=== PATIENT | male | born 1970 | race Caucasian/White ===

== ENCOUNTER 2016-11-25 20:58 | Inpatient (IN) | payer MEDICAID, MEDICARE ==
[~2016-11-25] VITALS: Ht 181.6 cm; Wt 109.7 kg
[2016-11-25 21:09] VITALS: BP 178/89; PULSE 104; RESP 18; O2SAT 98
[2016-11-25 22:00] LABS: BASOPHILS % (AUTO) 0.2 % (0-3); EOSINOPHILS % (AUTO) 1.7 % (0-5); MONOCYTES % (AUTO) 11.3 % (4-12); Mean Corpuscular Hemoglobin 27.2 pg (27.0-35.0); Mean Corpuscular Volume 83.1 fL (81-100); NEUTROPHILS % (AUTO) 73.2 % (40-74); Platelet Count 249 bil/L (150-400)
--- NOTE | 2016-11-25 22:36 | ED.REPORT ---
HPI-Extremity Problem Upper Date of Service November 25, 2016 ED Provider: Talat Lee MD 46 year old male with a history of diabetes, left BKA, and partial right foot amputation presents to the ER complaining of left hand pain secondary to an infection of the left finger. He is currently on courses of tetracycline and Bactrim to treat the infection. Associated symptoms include mild chills, and hot flashes. Patient denies productive cough, and any other symptoms at this time. Nursing Notes Stated Complaint: BAD INFECTION IN FINGER Chief Complaint: General Complaint Nursing Notes Reviewed: Yes Allergies: Coded Allergies: No Known Allergies (Unverified , 11/25/16) General Time Seen by MD: 22:33 Chief Complaint Hand Injury left, Finger injury left 3 Hx Obtained From: Patient Arrived By: Walk-in Onset Occurred: Onset unknown Location: : Finger left 3: Hand left Quality: Painful Severity: Current: Moderate Severity: Maximum: Moderate Additional Notes: Chills and hot flashes Pertinent Negative: Pt denies other symptoms Similar Sx Previous: Yes Past Medical History Past Medical History Reports: Diabetes mellitus Past Surgical History Partial amputation of right foot Left BKA Smoking History Unknown if Ever Smoker Ambulatory Status Independent Review of Systems Constitutional: Reports: Chills, Denies: Fever Musculoskeletal: Reports: Extremity pain (Left Hand), Denies: Back pain, Lumbar pain, Neck pain Complete sys rev & neg: except as marked. Respiratory: Denies: Non-productive cough, Prod cough, brown, Prod cough, clear , Prod cough, green, Prod cough, white, Prod cough, yellow GI: Denies: Nausea, Vomiting Physical Exam Initial Vital Signs Vital Signs (First) Date Time Temp Pulse Resp B/P Pulse Ox O2 Delivery O2 Flow Rate FiO2 11/25/16 21:09 38.6 104 18 178/89 98 Room Air Initial VS: Reviewed Head / Eyes: Atraumatic, Normocephalic Neck: Supple, Non-tender, Full range of motion Lower Extremities: Vascular intact, Neuro intact, No swelling, No tenderness Skin: Warm, Dry, No cyanosis Neurologic: Alert, Oriented, Nonfocal General/Constitutional: Awake, Alert, Well developed, Well hydrated, Well nourished, Cooperative Cheerful. Flushed. Respiratory / Chest: Breath sounds NL, Breath sounds = bilat, No respiratory distress, No rales, No rhonchi, No wheezing Cardiovascular: Heart rate NL, Regular rhythm, Heart sounds NL, Peripheral circulation NL Wrist / Hand: Full range of motion, Neurologic intact, Vascular intact Left distal third phalanx is white, full of pus, obviously infected. Old stab wound on the palmar side of the distal third finger. Interpretation & Diagnostics Lab Results Interpretation Result Diagram: 11/26/16 0445 11/26/16 0445 Test 11/25/16 21:47 Erythrocyte Sedimentation Rate 18mm/hr (0-15) Prothrombin Time 10.2sec (8.1-12.5) Prothromb Time International Ratio 0.95ratio Activated Partial Thromboplast Time 25.3sec (22.8-33.0) Phosphorus Level 2.4mg/dL (2.5-4.9) Magnesium Level 1.7mg/dL (1.6-2.6) Total Bilirubin 0.4mg/dL (0.0-1.2) Aspartate Amino Transf (AST/SGOT) 14U/L (0-50) Alanine Aminotransferase (ALT/SGPT) 15U/L (0-44) Alkaline Phosphatase 119U/L (25-150) Troponin T 0.010ug/L (0.0-0.011) Pro-B-Type Natriuretic Peptide 86.70pg/mL (0-121) Total Protein 8.3g/dL (6.4-8.4) Albumin 3.4g/dL (3.4-5.0) Hold Sigala Top Tube Received (Received) X-Ray Chest Interpretation Chest Xray Interpretation: Atelectatic streak at the left base. View: Portable, 1 view Interpretation / Wet Read by: Wet read ED physician X-Ray Interpretation Xray Interpretation: Bony fragment from prior amputation of the tuft of the middle finger. No obvious osteomyelitis. X-Ray Ordered: Hand left Interpretation / Wet Read by: Wet read ED physician Re-Eval/Medical Decision Med Decision/Clinical Course 38-year-old diabetic with prior amputations presents with worsening infection in his finger despite antibiotics. The entire tip of the finger is full of pus at this point, with proximal erythema and edema. X-ray does not show osteomyelitis, but there is previously been surgical removal of the tuft. He has begun with sepsis protocol soft tissue drugs including meropenem clindamycin and vancomycin. Admitted to the medicine service in stable condition. Trivial elevation of lactic acid and no evidence of generalized acidosis. He does have central fever and chills despite being on antibiotics. Consultation to orthopedics this morning. Source of Hx: Old records Re-Evaluation/Progress : Time of Eval: 22:39 Re-Evaluation/Progress Note: Discussed lab results and need for admission. Patient is amenable to the plan. All other questions addressed. Consultation #1: Referral / Consult Name: Carlos Eduardo Fan MD Consulted With: Hospitalist Call Returned at: 22:53 Evs Manager: Agrees with eval, Agrees with plan, Accepts admit Consultation #2: Referral / Consult Name: Talat Saenz MD Consulted With: Orthopedic Call Returned at: 22:53 Note: Left voicemail. Counseled Regarding: Diagnosis, Lab results, Need for admission Discharge & Departure Impression: Primary Impression: Abscess of finger of left hand Additional Impressions: Cellulitis and abscess Diabetes Peripheral vascular disease due to secondary diabetes Disposition: ADMITTED TO HOSPITAL Discharge Condition All VS Reviewed: Yes Condition: Stable Referrals: [facility] ([facility]) Rodolfo Attestation Portions of this note were transcribed by Yonathan Mckay. I, Dr. Lee, personally performed the history, physical exam and medical decision-making; I reviewed and confirmed the accuracy of the information in the transcribed note. Signed by: Rodolfo Simon, 11/26/2016 at 01:31 copies to: [facility] Christopher W MD November 25, 2016 22:36 YONATHAN MCKAY November 25, 2016 22:44 Pro-B-Type Natriuretic Peptide 86.70pg/mL (0-121) Total Protein 8.3g/dL (6.4-8.4) Albumin 3.4g/dL (3.4-5.0) Procalcitonin 0.11ng/mL (0.00-0.08) Hold Sigala Top Tube Received (Received) X-Ray Chest Interpretation Chest Xray Interpretation: Atelectatic streak at the left base. View: Portable, 1 view Interpretation / Wet Read by: Wet read ED physician X-Ray Interpretation Xray Interpretation: Bony fragment from prior amputation of the tuft of the middle finger. No obvious osteomyelitis. X-Ray Ordered: Hand left Interpretation / Wet Read by: Wet read ED physician Re-Eval/Medical Decision Source of Hx: Old records Re-Evaluation/Progress : Time of Eval: 22:39 Re-Evaluation/Progress Note: Discussed lab results and need for admission. Patient is amenable to the plan. All other questions addressed. Consultation #1: Referral / Consult Name: Carlos Eduardo Fan MD Consulted With: Hospitalist Call Returned at: 22:53 Evs Manager: Agrees with eval, Agrees with plan, Accepts admit Consultation #2: Referral / Consult Name: Talat Saenz MD Consulted With: Orthopedic Call Returned at: 22:53 Note: Left voicemail. Counseled Regarding: Diagnosis, Lab results, Need for admission Discharge & Departure Impression: Primary Impression: Osteomyelitis Additional Impression: Abscess of finger of left hand Disposition: ADMITTED TO HOSPITAL Discharge Condition All VS Reviewed: Yes Condition: Stable Referrals: [facility] (PC[facility]) Rodolfo Attestation Portions of this note were transcribed by Yonathan Mckay. I, Dr. Lee, personally performed the history, physical exam and medical decision-making; I reviewed and confirmed the accuracy of the information in the transcribed note. Signed by: Rodolfo Simon, 11/26/2016 at 01:31 copies to: [facility] Talat Lee MD November 25, 2016 22:36 YONATHAN MCKAY November 25, 2016 22:44
[2016-11-25] MEDS ORDERED: Clindamycin Inj 900 MG in IV Premix 1 EACH IV ONE (22:40)
[2016-11-25] MEDS ORDERED: Meropenem Inj 1,000 MG in 0.9% Sodium Chloride 100 ML IV ONE (22:40)
[2016-11-25] MEDS ORDERED: 0.9% Sodium Chloride 1,000 ML IV ONE (22:40)
[2016-11-25] MEDS ORDERED: Vancomycin Dose per Pharmacist XX ONE (22:40)
[2016-11-25 22:47] VITALS: BP 151/73; PULSE 98; RESP 19; O2SAT 97
[2016-11-25] MEDS ORDERED: Vancomycin Inj 2,250 MG in 0.9% Sodium Chloride 500 ML IV ONE (23:00)
[2016-11-25 23:12] LABS: INR 0.95 ratio
[2016-11-25 23:26] LABS: TROPONIN T 0.01 ug/L (0.0-0.011)
--- NOTE | 2016-11-25 23:34 | PCM.HPMED ---
Subjective Date of Service November 25, 2016 Primary Provider: Admitting Physician: Primary Care Physician: Halie Mukherjee Attending Physician: Chief Complaint: left finger infection History of Present Illness: 46-year-old male with history of insulin-dependent diabetes, left BKA, right partial foot amputations, and multiple digit amputations who presents to the ED complaining of infection of his left third digit. Patient noted the symptoms around Thursday, he was evaluated at [facility] ER and was placed on tetracycline and Bactrim. He is currently here in [facility] and noted that the infection has been spreading up his dorsum and forearm. He has noted some mild chills, and occasional hot flashes, but denies any SOB, CP, nausea, headache, dizziness, rash, or diarrhea. He notes a mild non-productive cough for the past month. reports that patient is a habitual nail biter, and due to his severe neuropathy, he has no pain from this. Patient reports that he is currently on 100 units of basal insulin twice a day and 50 units of Humalog before meals. He states that his morning sugars range between 75 and 200, and his afternoon sugars are regularly in the 200s and 300s, despite his high insulin dosage. He has had multiple cellulitis, osteomyelitis, and septic episodes in the past. Review of Systems: 12 point review of systems negative except as stated in the history of present illness Allergies Coded Allergies: No Known Allergies (Unverified , 11/25/16) Home Medications From [facility] records Gabapentin 1200 mg daily at bedtime Wellbutrin 150 mg daily at bedtime Citalopram 80 mg daily at bedtime Patient reports Levemir 100 units twice a day, Humalog 50 units before meals PMH Insulin-dependent diabetes type II Diabetic neuropathy Obesity Sleep apnea on CPAP Depression and anxiety Recurrent osteomyelitis Surgical History Left BKA Right partial foot amputation Right second and third digit amputation Left second digit amputation Appendectomy Family History Extensive family history of diabetes Social History Hx Alcohol Use: No Hx Substance Use: No Hx Tobacco Use: No Living Arrangement: Alone Exam Vital Signs Vital Sign - Last Date Time Temp Pulse Resp B/P Pulse Ox O2 Delivery O2 Flow Rate FiO2 11/25/16 22:47 37.8 98 19 151/73 97 Room Air Exam General: Obese male who appears in no acute distress, alert and oriented x 3 HEENT: PERRLA, EOMI, sclerae anicteric, oropharynx pink Neck: Soft, nontender, trachea midline CV: RRR, no M/R/C noted Respiratory: CTA B, no wheezing or rhonchi, normal respiratory effort Abdomen: Obese, soft, nontender, nondistended, NABS MSK: MS grossly intact in leftover extremities, Dysmorphic nails on every digit Extremities: Left BKA with prosthetic leg, right midfoot amputation, right 2nd and third digit amputated, left 2nd digit amputated. Left 3rd distal phalanx white in color with central ulceration draining yellow pus, whole digit is edematous and erythematous. Erythema extends from digit up dorsum to mid forearm. Forearm is tender to palpation. No fluctuance noted. No other tender or swollen joints. Neuro: No focal weakness, stockings and glove paresthesia bilaterally, face symmetric, speaks full and fluent sentences Skin: Erythema of left dorsum and forearm. Erythema in a cowl distribution on neck and chest, no other rashes noted Psychiatric: Appropriate mood and affect, linear thought process, cooperative Lab and Diagnostics Result Diagram: 11/25/16214611/25/162146 Assessment & Plan 46-year-old male with history of insulin-dependent diabetes, left BKA, right partial foot amputations, and multiple digit amputations who presents to the ED complaining of infection of his left third digit x 5 days Sepsis, present on admission Patient meets criteria with temperature 38.6, tachycardia, elevated white count , and finger as source of infection Initiate early goal-directed therapy Initial lactic acid was 1.2, CRP was 15.7, ESR was 18, and Procalcitonin of 0.11 IV vancomycin, IV clindamycin, IV meropenem initiated in the ED on November 25 Blood cultures and abscess culture were drawn, results pending MRSA screen pending IV NS at 150mls/hr Cellulitis with abscess, POA LRINEC score of 5, low risk of NSTIs. Should cover for pseudomonas in this diabetic patient. Tailor antibiotics as appropriate Awaiting imaging to evaluate for osteomyelitis. We will continue with IV vancomycin, IV clindamycin, and switch to IV Zosyn until ID consultation Recommend Infectious Disease consultation in the AM. Hand/Plastic surgeon to be consulted in the AM. Type II diabetes, POA Awaiting MED REC to verify patient's home regimen. Will place on High dose correctional scale and 50 units of Lantus BID until MED rec is performed. May need U-300 insulin brought up from pharmacy A1c pending SYLVIA, POA Place on CPAP Mood disorders, POA Will continue patient's home medication when MED REC performed Tylenol prn fever Zofran prn nausea Bowel regimen prn constipation CODE STATUS: Full resuscitation Disposition: Patient is admitted under inpatient status with expected length of stay greater than 2 midnights due to risk of adverse events, decompensation, and medical complexity Pain Evaluation: Adequate Pain Control VTE Prophylaxis: Sub-Q Heparin (Unfractionated), SCDs Resuscitation Status: CPR: Attempt Resuscitation Attending Statement The patient was seen and examined together with Dr. Uribe on 11/25 and I agree with the history, exam and plan as outlined in the note above. Luis E Uribe DO November 25, 2016 23:34 Carlos Eduardo Fan MD November 26, 2016 02:37
[2016-11-25 23:36] LABS: Magnesium 1.7 mg/dL (1.6-2.6); Phosphorus 2.4 mg/dL (2.5-4.9)
[2016-11-25] MEDS ORDERED: 0.9% Sodium Chloride 1,000 ML IV SCH (23:59)
[2016-11-25] MEDS: 0.9% Sodium Chloride 1,000 ML IV SCH (23:59)
[2016-11-26] MEDS ORDERED: Ondansetron 2 mg/mL 2 mL Inj IVPUSH PRN
[2016-11-26] MEDS ORDERED: Polyethylene Glycol (PEG) 17 Gm Powder PO PRN
[2016-11-26] MEDS ORDERED: Alum-Mag Hydrox-Simeth 30 mL Suspension PO PRN
[2016-11-26] MEDS ORDERED: Glucose 40% Oral Gel 15 Gm Tube PO PRN (00:10)
[2016-11-26] MEDS: Heparin 5,000 Unit/mL Inj SUBQ SCH ×3 (00:30→16:10)
[2016-11-26] MEDS: Sodium Chloride LOK Flush 10 mL Syringe IVFLUSH SCH ×3 (00:30→16:11)
[2016-11-26] MEDS: Piperacillin-Tazo 3.375 Gm Inj 3.375 GM in Dextrose 5% Minibag Plus 50 ML IV SCH ×3 (00:30→17:25)
--- NOTE | 2016-11-26 01:06 | PCM.CONPHA ---
Subjective Date of Service: November 26, 2016 left finger infection Reason for Pharmacy Consult: Vancomycin Dosing Objective Vital Signs Date Time Temp Pulse Resp B/P Pulse Ox O2 Delivery O2 Flow Rate FiO2 11/25/16 22:47 37.8 98 19 151/73 97 Room Air 11/25/16 21:09 38.6 104 18 178/89 98 Room Air Weight (Kilograms): 113.6 Height (Feet): 5 Height (Inches): 10 Test 11/25/16 21:47 White Blood Count 11.2th/mm3 (3.8-10.1) Red Blood Count 5.03mil/mm3 (4.40-5.80) Hemoglobin 13.7g/dL (13.8-17.2) Hematocrit 41.8% (41.0-50.0) Mean Corpuscular Volume 83.1fL (81-100) Mean Corpuscular Hemoglobin 27.2pg (27.0-35.0) Mean Corpuscular Hemoglobin Concent 32.8% (32.0-37.0) Red Cell Distribution Width 13.3% (12.3-15.4) Platelet Count 249bil/L (150-400) Neutrophils (%) (Auto) 73.2% (40-74) Lymphocytes (%) (Auto) 13.4% (14-46) Monocytes (%) (Auto) 11.3% (4-12) Eosinophils (%) (Auto) 1.7% (0-5) Basophils (%) (Auto) 0.2% (0-3) Erythrocyte Sedimentation Rate 18mm/hr (0-15) Prothrombin Time 10.2sec (8.1-12.5) Prothromb Time International Ratio 0.95ratio Activated Partial Thromboplast Time 25.3sec (22.8-33.0) Sodium Level 135mEq/L (134-144) Potassium Level 4.7mEq/L (3.5-5.2) Chloride Level 98mEq/L (97-108) Carbon Dioxide Level 24mmol/L (18-29) Blood Urea Nitrogen 16mg/dL (6-24) Creatinine 0.80mg/dL (0.76-1.27) Estimat Glomerular Filtration Rate 110mL/min (>59) Glucose Level 308mg/dL (60-99) Lactic Acid Level 1.2mmol/L (0.4-2.0) Calcium Level 10.1mg/dL (8.5-10.1) Phosphorus Level 2.4mg/dL (2.5-4.9) Magnesium Level 1.7mg/dL (1.6-2.6) Total Bilirubin 0.4mg/dL (0.0-1.2) Aspartate Amino Transf (AST/SGOT) 14U/L (0-50) Alanine Aminotransferase (ALT/SGPT) 15U/L (0-44) Alkaline Phosphatase 119U/L (25-150) Troponin T 0.010ug/L (0.0-0.011) C-Reactive Protein 15.7mg/dL (0.0-0.5) Pro-B-Type Natriuretic Peptide 86.70pg/mL (0-121) Total Protein 8.3g/dL (6.4-8.4) Albumin 3.4g/dL (3.4-5.0) Procalcitonin 0.11ng/mL (0.00-0.08) Hold Sigala Top Tube Received (Received) Assessment/Plan Assessment/Plan Vancomycin management per pharmacy Indication: sepsis, cellulitis with abscess Vancomycin trough goal: 15-20 Nephrotic risks: diabetes Other antibiotics: clindacyin, Zosyn Loading dose: vancomycin 2250 mg @0047 Cultures: pending Maintenance dose: vancomcyin 1250 mg Q8H has been scheduled to start at 0830. Trough has been scheduled for 11/26 at 2359 prior to 4th dose. Pharmacy to continue to monitor and dose vancomycin daily. Thank you, Norm Vasquez Pharmacist Norm Vasquez November 26, 2016 01:06
[2016-11-26 03:47] VITALS: BP 117/52; PULSE 90; RESP 20; O2SAT 97
[2016-11-26 04:53] LABS: BASOPHILS % (AUTO) 0.1 % (0-3); MONOCYTES % (AUTO) 13.2 % (4-12); Mean Corpuscular Hemoglobin 27.6 pg (27.0-35.0); Mean Corpuscular Volume 83.5 fL (81-100); NEUTROPHILS % (AUTO) 60.9 % (40-74); Platelet Count 230 bil/L (150-400)
[2016-11-26] MEDS ORDERED: Insulin GLARgine 100 Unit/mL Syringe SUBQ SCH ×2 (08:00→22:00)
--- NOTE | 2016-11-26 08:13 | DRSVH ---
PROCEDURE: X-RAY LEFT HAND, MINIMUM THREE VIEWS ([id number]) INDICATIONS: pre op, MIDDLE FINGER INFECTION TECHNIQUE: 3 views of the hand(s) acquired. COMPARISON: None. FINDINGS: Bones: Chronic amputation of the distal aspect of the left second proximal phalanx and of the distal left third pharyngeal tuft. No erosions to suggest osteomyelitis at these sites. No fractures or disl ocations. Normal left hand alignment.. Soft tissues: No suspicious soft tissue calcifications. IMPRESSION: Amputations in the distal left third and proximal left second phalanges. Otherwise normal left hand radiographs. Dictated by: Maynor Hernandez M.D. on 11/26/2016 at 8:05 Approved by: Maynor Hernandez M.D. on 11/26/2016 at 8:06
--- NOTE | 2016-11-26 08:14 | DRSVH ---
PROCEDURE: X-RAY CHEST ONE VIEW, PORTABLE ([id number]) INDICATIONS: pre op TECHNIQUE: One view of the chest was acquired. COMPARISON: None. FINDINGS: Surgical changes and devices: None. Lungs and pleura: No pleural effusions or pneumothorax. Lungs are clear. Mediastinum: Mediastinal contours appear normal. Heart size is normal. Bones and chest wall: No suspicious bony lesions. Overlying soft tissues appear unremarkable. IMPRESSION: Negative chest. Dictated by: Maynor Hernandez M.D. on 11/26/2016 at 8:06 Approved by: Maynor Hernandez M.D. on 11/26/2016 at 8:07
[2016-11-26 08:23] VITALS: BP 122/61; PULSE 90; RESP 20; O2SAT 94
[2016-11-26] MEDS: 0.9% Sodium Chloride 1,000 ML IV SCH ×3 (08:27→23:40)
[2016-11-26] MEDS: Clindamycin Inj 600 MG in IV Premix 1 EACH IV SCH ×4 (08:28→23:41)
[2016-11-26] MEDS: Vancomycin Dose per Pharmacist XX SCH (08:29)
[2016-11-26] MEDS: Insulin LISPRO 300 Unit/3 mL Inj SUBQ SCH ×4 (09:09→21:51)
[2016-11-26] MEDS: Vancomycin Inj 1,250 MG in 0.9% Sodium Chloride 250 ML IV SCH ×2 (09:09→17:25)
[2016-11-26 11:48] VITALS: BP 120/63; PULSE 88; RESP 17; O2SAT 96
[2016-11-26 12:16] LABS: APPEARANCE,URINE CLEAR (CLEAR,HAZY); COLOR,URINE STRAW (YELLOW); OCCULT BLOOD,URINE NEGATIVE (NEGATIVE); UROBILINOGEN,URINE NORMAL (NORMAL)
[2016-11-26] MEDS ORDERED: SENN-133 PO (13:43)
[2016-11-26] MEDS ORDERED: CITA40TA13 PO (13:43)
[2016-11-26] MEDS ORDERED: GABA600T2 PO (13:43)
[2016-11-26] MEDS ORDERED: LOVA40TA PO (13:43)
[2016-11-26] MEDS ORDERED: INSU100I25 SQ (13:43)
[2016-11-26] MEDS ORDERED: BUPR150T8 PO (13:43)
[2016-11-26] MEDS ORDERED: ASPI-973 PO (13:43)
[2016-11-26] MEDS ORDERED: INSU100I18 SUBQ (13:43)
--- NOTE | 2016-11-26 14:00 | CONS ---
[address] [address] CONSULTATION REPORT PATIENT: VENTURA MARIN : 1970 MR#: [id number] ADMIT: 11/26/2016 JOB ID: [id number] DATE OF SERVICE: 11/26/2016 CONSULTING PHYSICIAN: Hospitalist service. BOWL TOPPER: Dayron Griffiths M.D., Plastic Surgery, Hand Surgery. CHIEF COMPLAINT: Left middle finger infection. DATE OF SERVICE: HISTORY OF PRESENT ILLNESS: This is a 46-year-old male patient with history significant for diabetes with peripheral vasculopathy. The patient has had left BKA as well as partial foot amputation. The patient also has had several finger amputations. The patient reports that he noticed some paleness of the left middle finger approximately one month ago. The patient reports that it progressed. The patient reports that he noted the erythema and swelling 4-5 days ago. The patient was evaluated at an outside emergency department and was placed on tetracycline and Bactrim. The patient is currently visiting a friend. The patient reports that his symptoms worsened and presents for further evaluation. The patient has been admitted for antibiotics. The patient is currently on vancomycin and Zosyn as well as clindamycin. The patient reports that he would like to have amputation of the tip. The patient has had such a procedure in the past with a guillotine with the patient followed by delayed closure. The patient's x-rays done yesterday were reviewed. They noted that the distal tip of the distal phalanx is non-existent. PAST MEDICAL HISTORY: 1. Diabetes. 2. Peripheral vascular disease. 3. Sleep apnea. 4. Neuropathy. 5. Recurrent osteomyelitis. PAST SURGICAL HISTORY: 1. Left BKA. 2. Left foot amputation. 3. Right index and middle finger amputation. 4. Left index finger amputation. 5. Appendectomy. FAMILY HISTORY: Noncontributory. SOCIAL HISTORY: Negative. REVIEW OF SYSTEMS: As above, otherwise review of systems is negative. PHYSICAL EXAMINATION: The patient is awake, alert and oriented to time, place and person. This focused left index examination reveals amputation of the left index finger at the PIP joint. The incision continues to have a small scab at the central portion of it. The patient's left little finger has the erythema to the proximal aspect of the middle phalanx. There is moderate swelling. The distal phalanx is pale. There is a skin split on the volar aspect of the distal phalanx as well as on the dorsal aspect of the distal phalanx, and to manipulation produces a small amount of purulence. Examination is otherwise negative. ASSESSMENT AND PLAN: This is a patient with left middle finger infection. I spoke with the patient and he has never had any amputation of the middle finger tip. The finger tip likely has been infected and has chronic osteomyelitis and has essentially been in the way. At this point, I agree with the patient. I recommend a guillotine amputation of the middle finger at the DIP joint leaving as much viable tissue as possible. The patient will perform dressing changes to this area daily until the area calms down. Once this has been accomplished, I will perform a delayed closure. I discussed this with the patient who agreed with the plan. PLAN: Please make the patient n.p.o. past midnight tonight, November 26, 2016. I anticipate taking the patient to the operating room on November 27, 2016 for guillotine amputation of the left middle finger. JANICE
[2016-11-26] MEDS ORDERED: BUPR100T7 PO (14:31)
[2016-11-26] MEDS ORDERED: LIP40 PO (14:31)
[2016-11-26] MEDS ORDERED: LOSA25TA21 PO (14:31)
--- NOTE | 2016-11-26 15:02 | PCM.PNMED ---
Subjective Date of Service November 26, 2016 Subjective Patient was seen and examined at bedside today. Patient denies any chest pain, shortness of breath, nausea, vomiting, diarrhea. Patient denies any pain in the affected digit. Overnight events: None Exam Vital Signs Vital Sign - Last Date Time Temp Pulse Resp B/P Pulse Ox O2 Delivery O2 Flow Rate FiO2 11/26/16 11:48 36.4 88 17 120/63 96 Nasal Cannula 3.00 Intake and Output 11/25/16 11/25/16 11/26/16 Cumulative From/Thru 15:00 23:00 07:00 11/25/16 21:09 - 11/26/16 00:45 Intake Total 1000 ml 1000 ml Balance 1000 ml 1000 ml Intake IV Total 1000 ml 1000 ml Exam Physical Exam: GEN: Patient was awake, alert, responding appropriately to questions HEENT: Pupils equal round and reactive to light, extraocular eye muscles intact , Neck soft supple, trachea midline, nomocephalic/atraumatic CV: +S1/S2, regular rate and rhythm, no murmurs auscultated Respiratory: CTAB, no wheezes, rales, rhonchi GI: +bowel sounds x4, soft, compressible, nontender to palpation EXT: no clubbing, cyanosis, edema noted in the lower extremities, patient has a left BKA, right metatarsal amputation, multiple digit amputations in the hand, left third digit positive edema nonblanching skin and positive necrosis Neuro: Cranial nerves II-XII grossly intact Psych: mood and affect were appropriate IVs and Medications Medications Reviewed: Medications were reviewed in detail Lab and Diagnostics Result Diagram: 11/26/16 0445 11/26/16 0445 Assessment & Plan 46-year-old male with history of insulin-dependent diabetes, left BKA, right partial foot amputations, and multiple digit amputations who presents to the ED complaining of infection of his left third digit x 5 days Sepsis, present on admission Patient meets criteria with temperature 38.6, tachycardia, elevated white count , and finger as source of infection -Initiate early goal-directed therapy -Initial lactic acid was 1.2, CRP was 15.7, ESR was 18, and Procalcitonin of 0.11 -IV vancomycin, IV clindamycin, IV meropenem initiated in the ED on November 25 -Blood cultures and abscess culture were drawn, results pending -MRSA screen Negative -Discontinue IV fluids restart at midnight IV NS at 150mls/hr Cellulitis with abscess, POA Should cover for pseudomonas as this is diabetic patient. -Dr. Griffiths consulted (orthopedics) case was discussed with him and he feels that this is osteomyelitis -Continue IV antibiotics IV vancomycin, IV clindamycin, and switch to IV Zosyn until ID consultation - Consult infectious disease (Dr. Woodard) -Nothing by mouth at midnight -Surgical amputation in the morning -Continue home dose of gabapentin 1200 mg by mouth daily at bedtime Type II diabetes, POA -Hemoglobin A1c pending -Continue high-dose correctional insulin sliding scale -Continue home dose Levemir, equivalent 100 units subcutaneous twice a day -Continue home dose Levemir equivalent 50 units subcutaneous 3 times a day before meals -Continue to monitor and medically manage Hyperlipidemia (currently stable) -Continue atorvastatin 40 mg by mouth daily at bedtime Hypertension -Continue losartan 25 mg by mouth daily at bedtime SYLVIA, POA Place on CPAP Mood disorders, POA -Continue citalopram 40 mg by mouth daily at bedtime -Continue home dose of Wellbutrin 200 mg by mouth daily at bedtime Tylenol prn fever Zofran prn nausea Bowel regimen prn constipation CODE STATUS: Full resuscitation Disposition: The patient currently has osteomyelitis and this was discussed extensively with Dr. Griffiths. He feels that the patient definitely needs an amputation this was scheduled for tomorrow. He states that if the patient does well he may be able to be discharged home tomorrow. They will not close the wound tomorrow but the patient will follow-up with him in 2 weeks for closure and in the meantime do dressing changes. The patient has been through this multiple times and understands and is okay with this plan. VTE Prophylaxis: Sub-Q Heparin (Unfractionated), SCDs Resuscitation Status: CPR: Attempt Resuscitation Shirley Alberts DO November 26, 2016 15:02
[2016-11-26 16:13] VITALS: BP 107/55; PULSE 86; RESP 17; O2SAT 98
[2016-11-26] MEDS ORDERED: INSULIN LISPRO 50 UNIT SUBQ SCH (17:00)
[2016-11-26] MEDS ORDERED: INSULIN DETEMIR 100 UNIT SQ SCH (20:30)
[2016-11-26] MEDS ORDERED: buPROPion SR 100 mg ER12 Tablet PO SCH (21:00)
[2016-11-26 21:15] VITALS: BP 112/58; PULSE 98; RESP 18; O2SAT 94
[2016-11-26] MEDS: Insulin GLARgine 100 Unit/mL Syringe SUBQ SCH (21:52)
[2016-11-26] MEDS ORDERED: Vancomycin Serum Trough XX ONE (23:59)
[2016-11-27] VITALS (8 sets, daily range): BP systolic 105–144; BP diastolic 54–74; PULSE 87–92; RESP 16–18; O2SAT 93–97
[2016-11-27] MEDS: Heparin 5,000 Unit/mL Inj SUBQ SCH ×3 (00:25→16:41)
[2016-11-27] MEDS: Vancomycin Inj 1,250 MG in 0.9% Sodium Chloride 250 ML IV SCH (00:26)
[2016-11-27] MEDS: Sodium Chloride LOK Flush 10 mL Syringe IVFLUSH SCH ×3 (00:30→16:41)
--- NOTE | 2016-11-27 02:20 | PCM.PHAPRO ---
Progress Date of Service: November 27, 2016 left finger infection Vancomycin management per pharmacy Indication: sepsis, cellulitis with abscess Vancomycin trough goal: 15-20 Nephrotic risks: diabetes Other antibiotics: clindacyin, Zosyn Loading dose: vancomycin 2250 mg @0047 Previous maintenance dose: vancomycin 1250 mg Q8H. Trough this evenin.4 Trough is subtherapeutic.Will aim for trough around 15 and anticipate trough to creep up due to accumulation. Increase maintenance dose: vancomcyin 1500 mg Q8H has been scheduled to start at 0830. Trough has been scheduled for 11/28 at 0800. Pharmacy to continue to monitor and dose vancomycin daily. Thank you, Norm Vasquez Pharmacist Norm Vasquez November 27, 2016 02:20
[2016-11-27] MEDS: Piperacillin-Tazo 3.375 Gm Inj 3.375 GM in Dextrose 5% Minibag Plus 50 ML IV SCH (03:31)
[2016-11-27] MEDS: 0.9% Sodium Chloride 1,000 ML IV SCH (05:52)
--- NOTE | 2016-11-27 06:36 | PCM.HPANE ---
Patient Data Surgeon Admitting Provider:Carlos Eduardo Fan MD Attending Provider:Carlos Eduardo Fan MD Primary Care Physician:[facility] Other Provider:Sundeep Raines Anesthesia Reason for Visit Infected And Distal Phalang 3RD Finger L Hand Ht/WT & BMI Height (Feet): 5 Height (Inches): 11.50 Weight (Kilograms): 109.700 Body Mass Index 33.12 Allergies Coded Allergies: No Known Allergies (Unverified , 11/25/16) Past Anesthesia History Anesthesia History: Denies:: Anesthesia Reactions Diabetes History Hx Diabetes?: Yes Current Bedside Blood Glucose: 180 MRSA MRSA: No Medications Hypertension Medication: Yes Home Meds Incl Beta Tamica: No Reported Medications Losartan Potassium 25 Mg [id number] Mg PO HS 11/26/16 Atorvastatin (Lipitor)40 Mg Ajbvbn04 Mg PO HS 11/26/16 Bupropion ER (Wellbutrin SR)100 Mg Tablet.er200 Mg PO HS 11/26/16 Sennosides (Senna)8.6 Mg Tablet8.6 Mg PO HS 11/26/16 Aspirin 81 Mg Dawfdc61 Mg PO HS 11/26/16 Citalopram 40 Mg Mgsrnk50 Mg PO HS 11/26/16 Gabapentin 600 Mg Tablet1,200 Mg PO HS 11/26/16 Insulin Detemir (Levemir Flextouch)100 Unit/1 Ml Insuln.ayz967 Unit SQ BID 11/26/16 Insulin Lispro (HumaLOG U100 Insulin Pen)100 Unit/1 Ml Insuln.pen50 Unit SUBQ TIDAC Blood Sugar Lispro Correction <151 0 units 151-175 1 unit 176-200 2 units 201-225 3 units 226-250 4 units 251-275 5 units 276-300 6 units 301-325 7 units 326-350 8 units 351-375 9 units 376-400 10 units >400 12 units Check blood sugars before meals and at bedtime. Use correction factor only before meals. 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 Denies:: Blood Transfusions Hx Diabetes: YesBedside Blood Glucose: 180 Hx Alcohol Use: NoHx Substance Use: No Smoking Status: Unknown if Ever Smoker Stop/Bang Treated for Sleep Apnea?: Yes Do You Have a CPAP Machine?: Yes S-Snoring: Do You Snore Loudly: Yes T-Tired: feel tired, fatigued: Yes O-Obsered: Observed not breath: Yes P-Blood Pressure: treated: Yes B- Body Mass Index > 35 kg/m2: Yes A- Age over 50: No N- Neck Large Circumference: No G- Gender Male: Yes SYLVIA Total Score: 7 SYLVIA Risk Assessment: High Risk, =/>3 Yes Risk Assessment Category Category 1A: Patient has history of documented sleep apnea, and HAS NOT received any narcotic, sedative or anesthesia administration during this stay. Category 1B: Patient has history of documented sleep apnea, and HAS received any narcotic , sedative or anesthesia administration during this stay Category 2: Patient has SUSPECTED Obstructive Sleep Apnea, and HAS received any narcotic , sedative or anesthesia administration during this stay. Category 3: Patient has SUSPECTED Obstructive Sleep Apnea and HAS NOT received narcotic, sedative or anesthesia administration during this stay. Category 4: Outpatient in Procedural Areas with known sleep apnea or who screen positive for High Risk via the STOP/BANG questionnaire. Exam Exam General Appearance: Alert, Oriented X3, Cooperative, No Acute Distress HEENT/AIRWAY: MP 2 Lungs: Normal Air Movement Heart: Exam Unremarkable Meds/Labs/Diagnostics Admission Meds Current Medications Clindamycin Phosphate/ Dextrose/Premix (Cleocin Inj/IV Premix) 50 ml @ 100 mls/ hr Q8 IV Last administered on 5/10/17at 23:41; Start 11/26/16 at 08:00 Insulin Glargine (Lantus Insulin Inj) 50 unit BID@08,22 SUBQ Last administered on 11/26/16 09:09; Start 11/26/16 at 08:00; Stop 11/26/16 at 15:31; Status DC Insulin Human Lispro Nutritional Dose to be given pr... [facility] SUBQ Last administered on 11/26/16 21:51; Start 11/26/16 at 08:00 Vancomycin HCl 1250 mg/Sodium Chloride 250 ml @ 166.667 mls/hr Q8 IV Last administered on 11/27/16 00:26; Start 11/26/16 at 08:30; Stop 11/27/16 at 02:16 ; Status DC Sodium Chloride (Normal Saline) 1,000 ml @ 150 mls/hr Q6H40M IV Last administered on 11/27/16 05:52; Start 11/27/16 at 00:00 Aspirin (Ecotrin) 81 mg HS PO Last administered on 11/26/16 21:17; Start 11/26 at 21:00 Atorvastatin Calcium (Lipitor) 40 mg HS PO Last administered on 11/26/16 21:17 ; Start 11/26/16 at 21:00 Bupropion HCl (Wellbutrin-SR) 200 mg HS PO Last administered on 11/26/16 21:17 ; Start 11/26/16 at 21:00 Losartan Potassium (Cozaar) 25 mg HS PO Last administered on 11/26/16 21:17; Start 11/26/16 at 21:00 Senna (Senokot) 8.6 mg HS PO Last administered on 11/26/16 21:17; Start at 21:00 Citalopram Hydrobromide (CeleXA) 40 mg HS PO Last administered on 11/26/16 21: 17; Start 11/26/16 at 21:00 Gabapentin (Neurontin) 1,200 mg HS PO Last administered on 11/26/16 19:44; Start 11/26/16 at 21:00 Insulin Glargine (Lantus Insulin Inj) 100 unit ,22 SUBQ Last administered on 11/26/16 21:52; Start 11/26/16 at 22:00 Bedside Blood Glucose: 180 Labs Test 11/25/16 21:47 11/26/16 04:45 11/26/16 11:20 11/27/16 00:00 Erythrocyte Sedimentation Rate 18mm/hr (0-15) Prothrombin Time 10.2sec (8.1-12.5) Prothromb Time International Ratio 0.95ratio Activated Partial Thromboplast Time 25.3sec (22.8-33.0) Hemoglobin A1c 9.6% (4.8-5.6) Phosphorus Level 2.4mg/dL (2.5-4.9) Magnesium Level 1.7mg/dL (1.6-2.6) Total Bilirubin 0.4mg/dL (0.0-1.2) Aspartate Amino Transf (AST/SGOT) 14U/L (0-50) Alanine Aminotransferase (ALT/SGPT) 15U/L (0-44) Alkaline Phosphatase 119U/L (25-150) Troponin T 0.010ug/L (0.0-0.011) Pro-B-Type Natriuretic Peptide 86.70pg/mL (0-121) Total Protein 8.3g/dL (6.4-8.4) Albumin 3.4g/dL (3.4-5.0) Hold Sigala Top Tube Received (Received) Streptozyme 103.0IU/mL (0.0-200.0) White Blood Count 8.4th/mm3 (3.8-10.1) Red Blood Count 4.31mil/mm3 (4.40-5.80) Hemoglobin 11.9g/dL (13.8-17.2) Hematocrit 36.0% (41.0-50.0) Mean Corpuscular Volume 83.5fL (81-100) Mean Corpuscular Hemoglobin 27.6pg (27.0-35.0) Mean Corpuscular Hemoglobin Concent 33.1% (32.0-37.0) Red Cell Distribution Width 13.2% (12.3-15.4) Platelet Count 230bil/L (150-400) Neutrophils (%) (Auto) 60.9% (40-74) Lymphocytes (%) (Auto) 22.6% (14-46) Monocytes (%) (Auto) 13.2% (4-12) Eosinophils (%) (Auto) 3.0% (0-5) Basophils (%) (Auto) 0.1% (0-3) Sodium Level 136mEq/L (134-144) Potassium Level 5.0mEq/L (3.5-5.2) Chloride Level 103mEq/L (97-108) Carbon Dioxide Level 21mmol/L (18-29) Blood Urea Nitrogen 16mg/dL (6-24) Creatinine 0.83mg/dL (0.76-1.27) Estimat Glomerular Filtration Rate 105mL/min (>59) Glucose Level 246mg/dL (60-99) Lactic Acid Level 1.1mmol/L (0.4-2.0) Calcium Level 9.1mg/dL (8.5-10.1) C-Reactive Protein 12.7mg/dL (0.0-0.5) Procalcitonin 0.14ng/mL (0.00-0.08) Urine Color Straw (YELLOW) Urine Appearance Clear (CLEAR,HAZY) Urine pH 6.0 (5.0-8.0) Urine Specific [place] 1.025 (1.003-1.035) Urine Protein Negativemg/dL (NEG,TRACE) Urine Glucose (UA) Negativemg/dL (NEGATIVE) Urine Ketones Negativemg/dL (NEGATIVE) Urine Occult Blood Negative (NEGATIVE) Urine Nitrite Negative (NEGATIVE) Urine Bilirubin Negative (NEGATIVE) Urine Urobilinogen Normalmg/dL (NORMAL) Urine Leukocyte Esterase Negative (NEGATIVE) Urine RBC 0-2/hpf (0-2) Urine WBC 0-5/hpf (0-5) Urine Epithelial Cells Occasional/hpf (NONE-MOD) Urine Crystals None seen (NONE SEEN) Urine Bacteria None/hpf (NONE-FEW) Urine Hyaline Casts None/lpf (NONE) Urine Granular Casts None seen (NONE SEEN) Urine Waxy Casts None seen (NONE SEEN) Urine Red Blood Cell Casts None seen (NONE SEEN) Urine White Blood Cell Casts None seen (NONE SEEN) Urine Mucus None seen (None Seen) Urine Trichomonas None seen (NONE SEEN) Urine Yeast None (NONE SEEN) Urinalysis Comment None Urine Culture Reflexed Not indicated Vancomycin Level Trough 12.4mcg/mL Plan Impression Patient chart reviewed, patient interviewed and anesthestic plan with risks, benefits, and alternatives discussed, and informed consent obtained. NPO per Anesth. Guidelines: Yes ASA Physical Status: ASA3 Severe Disease (uncontrolled DM with end-organ damage , HTN, SYLVIA) Anesthetic Plan: MAC Bene/Risks/Altern/Consents: Yes HP Complete Prior to Induction: Yes Luís Hernández MD November 27, 2016 06:36
[2016-11-27 06:57] LABS: Mean Corpuscular Hemoglobin 27.4 pg (27.0-35.0); Mean Corpuscular Volume 83.2 fL (81-100)
[2016-11-27] MEDS: Clindamycin Inj 600 MG in IV Premix 1 EACH IV SCH ×2 (07:05→11:04)
[2016-11-27] MEDS ORDERED: Lactated Ringer's 1,000 ML IV SCH (07:17)
[2016-11-27] MEDS ORDERED: Lactated Ringer's 500 ML IV PRN (07:17)
[2016-11-27] MEDS ORDERED: fentaNYL-PF 50 mCg/mL 2 mL Inj IVPUSH PRN (07:20)
[2016-11-27] MEDS ORDERED: HYDROmorphone 1 mg/mL Inj IVPUSH PRN (07:20)
[2016-11-27] MEDS ORDERED: Ondansetron 2 mg/mL 2 mL Inj IVPUSH PRN (07:20)
[2016-11-27] MEDS ORDERED: Phenylephrine 10,000 mCg/mL Inj IVPUSH PRN (07:20)
[2016-11-27] MEDS ORDERED: Dexamethasone 4 mg/mL Inj IVPUSH PRN (07:20)
[2016-11-27] MEDS ORDERED: MetoCLOpramide 5 mg/mL 2 mL Inj IVPUSH PRN (07:20)
[2016-11-27] MEDS ORDERED: EPHEDrine Sulfate 50 mg/mL Inj IVPUSH PRN (07:20)
[2016-11-27] MEDS ORDERED: Albuterol-Ipratropium 3 mL Inhalation Solution NEB PRN (07:20)
--- NOTE | 2016-11-27 07:43 | PCM.ANEP1 ---
Post Anesthesia Phase 1 PACU Phase 1 Assessment Date of Service: November 27, 2016 Vital Signs see anesthesia record Vital Signs Date Time Temp Pulse Resp B/P Pulse Ox O2 Delivery O2 Flow Rate FiO2 11/27/16 05:00 37.2 90 18 113/59 93 Room Air Anesthetic Administered: MAC Level of Alertness: Awake, talking OMALLEY's with Equal Strength: Yes Pain: No Nausea or Vomiting: No Cardiovascular Function and Hy: Yes Oxygen Delivery: Nasal Cannula Lungs: Normal Air Movement Dermatome Level: Full Sensation Complications: No Follow up Care: No Luís Hernández MD November 27, 2016 07:42
[2016-11-27] MEDS ORDERED: Bupivacaine-MPF 0.25% 30 mL Inj INFILTRATE ONE (07:46)
[2016-11-27] MEDS ORDERED: Lactated Ringer's 1,000 ML IV ONE (07:46)
[2016-11-27] MEDS: Insulin LISPRO 300 Unit/3 mL Inj SUBQ SCH ×3 (08:00→17:29)
--- NOTE | 2016-11-27 08:15 | PCM.SURGOP ---
Surgical Operative Report Date of Service: November 27, 2016 Pre Operative Diagnosis Left middle finger infection with osteomyelitis Post Operative Diagnosis Same Procedure: Left middle finger guillotine amputation Surgeon and Purchasing Director: Surgeon: Dayron Griffiths Assistants: None Indication for Procedure This is a patient with left middle finger infection, tissue necrosis with osteomyelitis. At this point, distal phalangeal amputation is indicated. Findings: Patient has necrosis of the left middle finger tip with osteolysis of the distal tuft. Soft tissue amputated at the level of the eponychial fold. Distal phalanx was disarticulated at the DIP joint. Procedure Details The patient was identified in the preoperative area and the surgical site was marked. He was then taken to the OR and placed supine on the operating table. Appropriate time out was taken. MAC was induced smoothly. He was then prepped and dressed in the usual sterile manner. Local anesthesia was then infiltrated around the left middle finger digital nerves. A dorsal ring block was also carried out. I then turned my attention to the left middle finger. The has erythema and mild swelling to the middle phalanx. On the distal phalanx, the tip is pale and necrotic. He has a wound on the proximal nail bed near the eponychial fold. He also has a wound on the volar aspect of the distal phalanx, about 1 cm from the DIP crease. Bone was palpable at the base of the wounds. A circumferential incision was made connecting the wounds. The incision was deepened to the bone with a #10 blade. The distal phalangeal soft tissue distal to the incision was then elevated off of the bone and amputated. It was passed off to pathology. The soft tissue proximal to the incision was bleeding normally. It was elevated off of the bone to the level of the DIP. The distal phalanx was then sharply disarticulated at the DIP joint. Hemostasis was obtained with electrocautery. The wound was then dressed with Xeroform, antibiotic ointment and Conform. The patient tolerated the procedure well. Needle, sponge and instrument counts were corrected. He was transported to recovery in a stable condition. \ Complications There were no periprocedural complications identified. Surgical Specimen Removed: Yes Specimen sent to Pathology: Yes Surgical Specimen description: Left middle finger tip to pathology Left middle distal phalanx to microbiology Anesthetic Plan: MAC Grafts, Implants: None Output, Estimated Blood Loss: 1 Blood Administration during rodríguez: No Post Operative Plan Moist to dry dressing changes to left middle finger wound BID Follow up with Dr. Griffiths as an outpatient on 12/08 or 12/09 Continue antibiotic regimen per Dayron Figueredo MD November 27, 2016 08:15
[2016-11-27] MEDS: Vancomycin Dose per Pharmacist XX SCH (08:30)
[2016-11-27] MEDS ORDERED: SODIUM CHLORIDE 0.9% IV SCH (08:30)
[2016-11-27] MEDS ORDERED: Vancomycin Inj 1,500 MG in 0.9% Sodium Chloride 500 ML IV SCH ×2 (08:30→12:30)
[2016-11-27] MEDS ORDERED: VANCOMYCIN IV SCH (08:30)
[2016-11-27] MEDS: Insulin GLARgine 100 Unit/mL Syringe SUBQ SCH (09:01)
[2016-11-27] MEDS ORDERED: Piperacillin-Tazo 3.375 Gm Inj 3.375 GM in Dextrose 5% Minibag Plus 50 ML IV SCH (14:00)
[2016-11-27] MEDS ORDERED: Dalbavancin 500 mg Inj IV ONE (15:15)
--- NOTE | 2016-11-27 15:55 | CONS ---
[address] [address] CONSULTATION REPORT PATIENT: VENTURA MARIN : 1970 MR#: [id number] ADMIT: 11/26/2016 JOB ID: [id number] DATE OF SERVICE: 11/27/2016 INFECTIOUS DISEASE CONSULT: I thank Dr. Uribe for this consult. 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 HISTORY OF PRESENT ILLNESS: The patient is a 46-year-old gentleman with very severe diabetic neuropathy who suffered multiple amputations involving all four extremities. He reports he has a dense neuropathy and has no feeling in his hands or his legs up to about the knee level. He tells me that about a month ago he developed one in a series of severe soft tissue infections involving his distal left 3rd finger. This was treated, he says, as an outpatient with tetracycline or doxycycline plus Bactrim but it continued to slowly progress. He usually goes down to the [facility] of [facility] but he was up in the [facility] visiting relatives over the past couple of days and there, noticed there was streaking and redness emanating from his 3rd finger and going up into his palm and up to his arm. He recognized this as a danger sign and so, presented and was admitted through the ED on November 25. He stated that he had had some chills, as well as some sweats but no fever per se and no cough, shortness of breath, or chest pain in association with this process. He notes that he has absolutely no feeling in his hands and is a habitual, frequent nail biter and since he has severe neuropathy, he often does not know where to stop and actually bites into the distal tips of his fingers which have caused a number of very severe soft tissue infections in the past leading to partial or full amputations of fingers. He has fairly poorly controlled diabetes despite extraordinarily high doses of insulin. He lives with his in the [facility] and as noted, they are not frequently in this area, and he has never been admitted to this hospital before, though he has had many admissions in [facility] and elsewhere. The patient just this morning underwent a partial amputation of his infected left distal 3rd finger. This was done by Dr. Griffiths in the OR, and specimens were sent to [facility]. Unfortunately, we, of course, have no results back yet, and the patient tells me that his plan is to be discharged within the next hour or two and will be immediately returning by car to his home in a fairly remote area of [facility]. The patient hopes that this can all be done with oral antibiotics, as home IV antibiotics would be difficult, if not impossible, to arrange at this juncture. ALLERGIES: The patient has no known antibiotic allergies. PAST MEDICAL HISTORY: 1. Type 2 diabetes. 2. Obstructive sleep apnea. 3. Recurrent soft tissue and bone infections in all four extremities. a. Status post left BKA for severe bone infection. b. Status post right TMA as the culmination of a series of right foot infections. c. Status post amputation of the right 2nd and 3rd fingers. d. Status post partial amputation of left 2nd and now 3rd fingers. 4. Anxiety and depression. SOCIAL HISTORY: The patient is a nondrinker and nonsmoker. Lives with his in [facility]. FAMILY HISTORY: Very positive for diabetes but negative for tuberculosis in first and second-degree relatives. REVIEW OF SYSTEMS: The patient tells me this afternoon that he has no fevers, chills, or sweats at this point. No headache. No new visual complaints, and he does not believe he has diabetic retinopathy. No oral lesions. No sore throat or trouble swallowing. No significant cough or shortness of breath. No chest pain today. No palpitations. No nausea, vomiting, diarrhea, or dysuria. As noted, he is completely insensate really in both hands up to the wrist and both legs up to about the knee. Of course, he no longer has the left leg below the knee. He continues to have issues with nail biting and recurrent soft tissue infections on his remaining fingers or portions thereof. Remainder of the review of systems is negative. PHYSICAL EXAMINATION: Reveals an afebrile, comfortable gentleman. Temperature 37 degrees, pulse 87, respiratory rate 18, blood pressure 112/69. He is saturating well on room air. Examination of the head is unremarkable. The patient's mental status is normal. Eyes without conjunctivitis or scleral icterus. The oral cavity without thrush or hairy leukoplakia. Neck: Fairly supple. Lungs are clear. Cardiac tones: Regular rate and rhythm without any notable murmur. He does not have a pacer. The abdomen is soft and nontender, somewhat protuberant and he is somewhat obese. He does not have a George catheter. No suprapubic tenderness is noted. No overt skin rashes noted. There is no evidence for synovitis in his joints. Patient has a left BKA, which appears well healed, and he is wearing a prosthesis, so I was not able to completely examine it. His right foot has a clean-appearing TMA scar, which appears completely uninfected. He has slow capillary refill in his remaining right foot, and his right leg is somewhat wasted, though he is able to bear weight on it and walk around the room. His upper extremities, his right hand is missing the 2nd and 3rd fingers. There are some shallow, apparently healing ulcerations on the remaining fingers. On the left hand, the patient has the 3rd distal finger bandaged which has some bloody drainage, as it was just amputated. Full closure of the wound is going to be done at a followup visit. The left 2nd finger has also been amputated. That is well healed. Again, remaining fingers on the left hand have some shallow ulcers, which appear uninfected at this point and are actually dry. 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 As noted, the patient has poor capillary refill in his right lower extremity. There is no evidence for synovitis I think I mentioned in his remaining joints. The remainder of the physical unremarkable. LABORATORIES: Include white count 7500, platelet count 240. Creatinine 0.71. Urinalysis without white cells. Vancomycin trough 12.4. Streptozyme is negative. Blood cultures are negative. MRSA smear negative. Gram stain from the finger yesterday which was done before any surgery is growing a light growth of what the Lab believed to be a staph species but we will not have identification until at least tomorrow. There is an intraoperative specimen sent by Dr. Griffiths which has no polys and no organisms. Chest x-ray done previously shows a normal chest. A hand x-ray shows the prior amputations. IMPRESSION: This is a difficult case both logistically and clinically. This unfortunate gentleman has suffered multiple amputations on all four extremities due to infections related to his diabetes and his neuropathy. He now presents with yet another infection. From the operative note dictated by Dr. Griffiths, it is clear that the patient had osteomyelitis. What is unclear to me is whether all the infected area on that left 3rd finger was resected or not, though the fact that the wound was left open leads me to believe there was probably some residual area of potential infection. An early culture seems to be growing a staphylococcal species, though we do not know if it is Staphylococcus epidermidis, Staphylococcus aureus, methicillin-resistant Staphylococcus aureus, or methicillin-sensitive Staphylococcus aureus. A rapid methicillin-resistant Staphylococcus aureus screen is negative, however, which makes it unlikely that it is methicillin-resistant Staphylococcus aureus. The biggest problem here is that the patient plans to leave after only 24 hours or so in the hospital and take off back towards his home. It is unclear to me exactly what followup will be other than a return here to Plastic Surgery to have the wound re-evaluated and closed. Since he has been here, he has received vancomycin, Zosyn and clindamycin. The optimal approach here would be, of course, for the patient to stay around this area for a bit until we see what the cultures are, as well as the histopathology, and have an opportunity to discuss this case with Dr. Griffiths, whom I have just paged. Perhaps, the patient will need IV therapy for a prolonged basis or potentially this could be managed with oral antibiotics. As the patient intends to leave here in the next couple of hours, I think the situation is quite difficult. RECOMMENDATIONS: 1. Will give the patient 1.5 g of dalbavancin today with a repeat 1.5 g dalbavancin dose when he returns for his plastic surgery followup in 10 or 12 days to have the wound closed. A recent publication suggested the two doses of dalbavancin in this fashion may be adequate to treat osteomyelitis, and I think it offers us a chance to give IV therapy to this gentleman where there may not be any other mechanism to do it. I understand this is probably not optimal and I would prefer to have a PICC line and have the patient follow up closely in clinic when received home IV antibiotics but I do not think that is going to be feasible. 2. For the gram-negative coverage, as we do not have any final cultures, I would suggest Cipro at a dose of 500 mg p.o. b.i.d. to be taken for probably four weeks. Again, without a clear followup plan, it is difficult to know how to manage his outpatient antibiotics but I think this would offer reasonable bone penetration as well. 3. If it could be facilitated, it would be helpful if I could see the patient in my clinic when he returns but I just have clinic on Thursday, so if he was around on December 10 or if he could make time to see me on December 10, that would be an optimal solution. 4. I am leaving orders here on the MOC or the patient to receive inpatient dalbavancin 1.5 g today and then 1.5 g in a followup dose when he returns for re-evaluation of his finger. 5. If possible, I would like to see the patient in my clinic on December 10.
[2016-11-27] MEDS ORDERED: Dalbavancin Inj 1,500 MG in Dextrose 5% 500 ML IV ONE (16:00)
[2016-11-27] MEDS ORDERED: CIPR-231 PO ×2 (16:07→16:28)
[2016-11-27] MEDS ORDERED: ACIDOPHILUS PROB1 M1 PO (16:07)
--- NOTE | 2016-11-27 16:21 | PCM.DIMED ---
Discharge Instructions Date of Service November 27, 2016 Dates of Hospitalization November 26, 2016 at 00:29 Discharge Diagnosis Discharge Diagnosis Left middle finger infection Diabetes Hyperlipidemia Hypertension Obstructive sleep apnea Mood disorder Medication Instructions Please take the lactobacillus pill daily while taking Cipro as this medication will help prevent diarrhea which is a common side effect of taking cipro. Diet Heart Healthy, Diabetic Activity No restrictions (gradually returned to your normal daily activities. Please follow all restrictions that were placed by Dr. Griffiths) Call your provider Fever or Chills, Shortness of breath, Chest pain Patient Instructions Please do dressing changes daily as instructed by Dr. Griffiths Follow-up plan It is very important that he follow up with Dr. Woodard in the infectious disease clinic in the next 10-12 days when he follow-up with Dr. Griffiths for final closure Follow-up with Dr. Griffiths's office in the next 10-12 days for final closure please call his office for further instructions Follow-up with PCP in: 2 weeks (please follow up with Dr. Woodard, infectious disease, on December 10. His office should be calling with an appointment however if you do not hear from them please call [phone]) Provider: [facility] Follow-up in: 1 week (if an appointment has not been made please call to schedule an appointment with your PCP) Shirley Alberts DO November 27, 2016 16:21
[2016-11-27] MEDS ORDERED: LACT1CAP44 PO (16:31)
--- NOTE | 2016-11-27 16:39 | PCM.DC.MED ---
Discharge Summary Date of Service November 27, 2016 Dates of Hospitalization Date of Hospital Admission November 26, 2016 at 00:29 Date of Discharge: November 27, 2016 Providers: Admitting Physician: Carlos Eduardo Fan MD Primary Care Physician: Sherrie Mukherjee [facility] Attending Physician: Carlos Eduardo Fan MD Diagnosis at Time of Discharge Diagnosis at Time of Discharge Left middle finger infection Diabetes Hyperlipidemia Hypertension Obstructive sleep apnea Mood disorder Consultations Orthopedics (Dr. Griffiths) Infectious disease (Dr. Woodard) Brief History 46-year-old male with history of insulin-dependent diabetes, left BKA, right partial foot amputations, and multiple digit amputations who presents to the ED complaining of infection of his left third digit. Patient noted the symptoms around Thursday, he was evaluated at [facility] ER and was placed on tetracycline and Bactrim. He is currently here in [facility] and noted that the infection has been spreading up his dorsum and forearm. He has noted some mild chills, and occasional hot flashes, but denies any SOB, CP, nausea, headache, dizziness, rash, or diarrhea. He notes a mild non-productive cough for the past month. reports that patient is a habitual nail biter, and due to his severe neuropathy, he has no pain from this. Patient reports that he is currently on 100 units of basal insulin twice a day and 50 units of Humalog before meals. He states that his morning sugars range between 75 and 200, and his afternoon sugars are regularly in the 200s and 300s, despite his high insulin dosage. He has had multiple cellulitis, osteomyelitis, and septic episodes in the past. Hospital Course 46-year-old male with history of insulin-dependent diabetes, left BKA, right partial foot amputations, and multiple digit amputations who presents to the ED complaining of infection of his left third digit x 5 days Patient presented with sepsis secondary to left third finger infection. The patient was taken to the OR on 11/27/2016 for a guillotine amputation of the tip of the left third digit. Patient tolerated the procedure well. Infectious disease was consulted and gave the patient 1.5 mg of Dalbavacin. The patient should follow up with Dr. Woodard on December 10 the same day that he follows up with Dr. Griffiths for final closure. When the patient sees Dr. Woodard he will give a second infusion of 1.5 mg of Dalbavacin. The patient will be sent home on ciprofloxacin 500 mg twice a day for the next 4 weeks. The patient has been instructed to take lactobacillus pills 2 twice daily while on this medication to prevent diarrhea. Dr. Woodard really wanted the patient to stay for IV antibiotic therapy however the patient was very interested that he wanted to go home today. This plan was discussed extensively with Dr. Woodard. Patient has been encouraged to continue follow-up with his bow rehairer as his hemoglobin A1c was 9.6. The patient stated that he is following up with his bow rehairer's closely and they are managing his diabetes medication. The patient is being discharged home in stable condition Peripheral hospital course please see below: Sepsis, present on admission Patient meets criteria with temperature 38.6, tachycardia, elevated white count , and finger as source of infection -Initiate early goal-directed therapy -Initial lactic acid was 1.2, CRP was 15.7, ESR was 18, and Procalcitonin of 0.11 -IV vancomycin, IV clindamycin, IV meropenem initiated in the ED on November 25 -Blood cultures and abscess culture were drawn, results pending -MRSA screen Negative -Discontinue IV fluids restart at midnight IV NS at 150mls/hr Cellulitis with abscess, POA Should cover for pseudomonas as this is diabetic patient. -Dr. Griffiths consulted (orthopedics) case was discussed with him and he feels that this is osteomyelitis -Continue IV antibiotics IV vancomycin, IV clindamycin, and switch to IV Zosyn until ID consultation - Consult infectious disease (Dr. Woodard) -Nothing by mouth at midnight -Surgical amputation in the morning -Continue home dose of gabapentin 1200 mg by mouth daily at bedtime Type II diabetes, POA -Hemoglobin A1c pending -Continue high-dose correctional insulin sliding scale -Continue home dose Levemir, equivalent 100 units subcutaneous twice a day -Continue home dose Levemir equivalent 50 units subcutaneous 3 times a day before meals -Continue to monitor and medically manage Hyperlipidemia (currently stable) -Continue atorvastatin 40 mg by mouth daily at bedtime Hypertension -Continue losartan 25 mg by mouth daily at bedtime SYLVIA, POA Place on CPAP Mood disorders, POA -Continue citalopram 40 mg by mouth daily at bedtime -Continue home dose of Wellbutrin 200 mg by mouth daily at bedtime Tylenol prn fever Zofran prn nausea Bowel regimen prn constipation CODE STATUS: Full resuscitation Exam Vital Signs (Last) Date Time Temp Pulse Resp B/P Pulse Ox O2 Delivery O2 Flow Rate FiO2 11/27/16 08:53 37.0 87 18 112/69 95 Room Air 11/27/16 08:13 2 Exam Physical Exam: GEN: Patient was awake, alert, responding appropriately to questions HEENT: Pupils equal round and reactive to light, extraocular eye muscles intact , Neck soft supple, trachea midline, nomocephalic/atraumatic CV: +S1/S2, regular rate and rhythm, no murmurs auscultated Respiratory: CTAB, no wheezes, rales, rhonchi GI: +bowel sounds x4, soft, compressible, nontender to palpation EXT: no clubbing, cyanosis, edema noted in the lower extremities, patient has a left BKA, right metatarsal amputation, multiple digit amputations in the hand, left third digit kerlex in place mildly blood tinged Neuro: Cranial nerves II-XII grossly intact Psych: mood and affect were appropriate Test 11/25/16 21:47 11/26/16 04:45 11/26/16 11:20 11/27/16 00:00 Erythrocyte Sedimentation Rate 18mm/hr (0-15) Prothrombin Time 10.2sec (8.1-12.5) Prothromb Time International Ratio 0.95ratio Activated Partial Thromboplast Time 25.3sec (22.8-33.0) Hemoglobin A1c 9.6% (4.8-5.6) Phosphorus Level 2.4mg/dL (2.5-4.9) Magnesium Level 1.7mg/dL (1.6-2.6) Total Bilirubin 0.4mg/dL (0.0-1.2) Aspartate Amino Transf (AST/SGOT) 14U/L (0-50) Alanine Aminotransferase (ALT/SGPT) 15U/L (0-44) Alkaline Phosphatase 119U/L (25-150) Troponin T 0.010ug/L (0.0-0.011) Pro-B-Type Natriuretic Peptide 86.70pg/mL (0-121) Total Protein 8.3g/dL (6.4-8.4) Albumin 3.4g/dL (3.4-5.0) Hold Sigala Top Tube Received (Received) Streptozyme 103.0IU/mL (0.0-200.0) Neutrophils (%) (Auto) 60.9% (40-74) Lymphocytes (%) (Auto) 22.6% (14-46) Monocytes (%) (Auto) 13.2% (4-12) Eosinophils (%) (Auto) 3.0% (0-5) Basophils (%) (Auto) 0.1% (0-3) Lactic Acid Level 1.1mmol/L (0.4-2.0) C-Reactive Protein 12.7mg/dL (0.0-0.5) Procalcitonin 0.14ng/mL (0.00-0.08) Urine Color Straw (YELLOW) Urine Appearance Clear (CLEAR,HAZY) Urine pH 6.0 (5.0-8.0) Urine Specific Surrency 1.025 (1.003-1.035) Urine Protein Negativemg/dL (NEG,TRACE) Urine Glucose (UA) Negativemg/dL (NEGATIVE) Urine Ketones Negativemg/dL (NEGATIVE) Urine Occult Blood Negative (NEGATIVE) Urine Nitrite Negative (NEGATIVE) Urine Bilirubin Negative (NEGATIVE) Urine Urobilinogen Normalmg/dL (NORMAL) Urine Leukocyte Esterase Negative (NEGATIVE) Urine RBC 0-2/hpf (0-2) Urine WBC 0-5/hpf (0-5) Urine Epithelial Cells Occasional/hpf (NONE-MOD) Urine Crystals None seen (NONE SEEN) Urine Bacteria None/hpf (NONE-FEW) Urine Hyaline Casts None/lpf (NONE) Urine Granular Casts None seen (NONE SEEN) Urine Waxy Casts None seen (NONE SEEN) Urine Red Blood Cell Casts None seen (NONE SEEN) Urine White Blood Cell Casts None seen (NONE SEEN) Urine Mucus None seen (None Seen) Urine Trichomonas None seen (NONE SEEN) Urine Yeast None (NONE SEEN) Urinalysis Comment None Urine Culture Reflexed Not indicated Vancomycin Level Trough 12.4mcg/mL Test 11/27/16 06:25 White Blood Count 7.5th/mm3 (3.8-10.1) Red Blood Count 4.63mil/mm3 (4.40-5.80) Hemoglobin 12.7g/dL (13.8-17.2) Hematocrit 38.5% (41.0-50.0) Mean Corpuscular Volume 83.2fL (81-100) Mean Corpuscular Hemoglobin 27.4pg (27.0-35.0) Mean Corpuscular Hemoglobin Concent 33.0% (32.0-37.0) Red Cell Distribution Width 13.1% (12.3-15.4) Platelet Count 240bil/L (150-400) Sodium Level 140mEq/L (134-144) Potassium Level 4.3mEq/L (3.5-5.2) Chloride Level 104mEq/L (97-108) Carbon Dioxide Level 24mmol/L (18-29) Blood Urea Nitrogen 14mg/dL (6-24) Creatinine 0.71mg/dL (0.76-1.27) Estimat Glomerular Filtration Rate 126mL/min (>59) Glucose Level 121mg/dL (60-99) Calcium Level 9.4mg/dL (8.5-10.1) Discharge Medications Discharge Medications Aspirin (Aspirin) 81 Mg Tablet 81 MG PO HS (Reported) Atorvastatin (Lipitor) 40 Mg Tablet 40 MG PO HS (Reported) Bupropion ER (Wellbutrin SR) 100 Mg Tablet.er 200 MG PO HS (Reported) Ciprofloxacin (Cipro) 500 Mg Tablet 500 MG PO BID Prescribed by: SHIRLEY ALBERTS DO Citalopram (Citalopram) 40 Mg Tablet 40 MG PO HS (Reported) Gabapentin (Gabapentin) 600 Mg Tablet 1,200 MG PO HS (Reported) Insulin Detemir (Levemir Flextouch) 100 Unit/1 Ml Insuln.pen 100 UNIT SQ BID ( Reported) Insulin Lispro (HumaLOG U100 Insulin Pen) 100 Unit/1 Ml Insuln.pen 50 UNIT SUBQ TIDAC (Reported) Blood Sugar Lispro Correction <151 0 units 151-175 1 unit 176-200 2 units 201-225 3 units 226-250 4 units 251-275 5 units 276-300 6 units 301-325 7 units 326-350 8 units 351-375 9 units 376-400 10 units >400 12 units Check blood sugars before meals and at bedtime. Use correction factor only before meals. Lactobacillus Acidophilus (Acidophilus Lactobacillus) 1 Each Capsule 2 CAPSULE PO BID Prescribed by: SHIRLEY ALBERTS DO Losartan Potassium (Losartan Potassium) 25 Mg Tablet 25 MG PO HS (Reported) Sennosides (Senna) 8.6 Mg Tablet 8.6 MG PO HS (Reported) Additional med instructions Please take the lactobacillus pill daily while taking Cipro as this medication will help prevent diarrhea which is a common side effect of taking cipro. Followup Plan Follow-up plan It is very important that he follow up with Dr. Woodard in the infectious disease clinic in the next 10-12 days when he follow-up with Dr. Griffiths for final closure Follow-up with Dr. Griffiths's office in the next 10-12 days for final closure please call his office for further instructions Discharge Diet: Heart Healthy, Diabetic Discharge Activity: No restrictions (gradually returned to your normal daily activities. Please follow all restrictions that were placed by Dr. Griffiths) Patient Instructions Please do dressing changes daily as instructed by Dr. Griffiths Follow-up Provider: Christiano Woodard MD Follow-up with PCP in: 2 weeks (please follow up with Dr. Woodard, infectious disease, on December 10. His office should be calling with an appointment however if you do not hear from them please call [phone]) Provider: SHERRIE MUKHERJEE Follow-up in: 1 week (if an appointment has not been made please call to schedule an appointment with your PCP) Time spent Greater than 35 minutes copies to: [facility] Shirley Alberts DO November 27, 2016 16:39
[2016-11-27] MEDS ORDERED: fentaNYL-PF 50 mCg/mL 2 mL Inj ONE (19:39)
[2016-11-27] MEDS ORDERED: Propofol 10,000 mCg/mL 20 mL Inj ONE (19:39)
[2016-11-28] MEDS ORDERED: Vancomycin Serum Trough XX ONE (20:00)
--- NOTE | 2016-12-02 11:24 | PATH ---
SURGICAL PATHOLOGY Attending Physician:Dayron Griffiths CASE STATUS: Signed Out PATIENT NAME: VENTURA MARIN PID: [id number] : 1970 DATE COLLECTED:11/27/2016 00:00 SPECIMEN: Finger, Amputation, Non-Traumatic CLINICAL HISTORY: LEFT MIDDLE FINGER OSTEOMYLITIS 1. LEFT MIDDLE FINGER TIP FINAL DIAGNOSIS: 1.AMPUTATED LEFT MIDDLE FINGERTIP: SEVERE ACUTE AND CHRONIC INFLAMMATION WITH SKIN ULCERATION, SOFT TISSUE NECROSIS, AND EXTENSIVE DIFFUSE ACUTE OSTEOMYELITIS. ICD10 CODEM86.342 GROSS DESCRIPTION: The specimen is received in formalin, labeled with the patient's name, sublabeled as left middle finger and consists of a disarticulated fingertip (2.4 cm AP, 2.2 cm SI, 2.7 cm ML). The fingernail is absent. The skin and soft tissue surrounding the nail bed is musa stevens-yellow firm and partially soft and friable. The bone is stevens-white and hard and cannot be slice of the scalpel. The bone cut surface is stevens-white and unremarkable. Ink code: yellow-anterior; purple posterior. Section code: (A) skin and soft tissue resection margins; (B) bone, serially sectioned, entirely submitted; (C) fingertip, longitudinally sectioned, payable representative. Note: The bone sections have been decalcified. 11/29/16 MICRO DESCRIPTION: See diagnosis. ICD-9 CODES: CPT CODES: 1: 66075, 92329 Electronically Signed Out Jasson Hale MD [facility] [address], [place] [address] Technical component performed at [facility], [facility] [address], [place], [address]
== END 2016-11-27 19:40 | disposition home or self-care (01) | DRG 854 ==
LOC: SED 20:58 → MOC 11-26 00:29 → OFED 11-26 00:44 → MOC 11-26 09:53
PROVIDERS: ADMIT Hospitalist; ATTEND Hospitalist
PROC: 0X6R0Z3 Detachment at Left Middle Finger, Low, Open Approach (ICD-10-PCS; principal; 2016-11-27 07:10)
DX: A41.9 Sepsis, unspecified organism (principal); L03.114 Cellulitis of left upper limb; L02.512 Cutaneous abscess of left hand; M86.9 Osteomyelitis, unspecified; M86.142 Other acute osteomyelitis, left hand; E11.69 Type 2 diabetes mellitus with other specified complication; E11.51 Type 2 diabetes mellitus with diabetic peripheral angiopathy without gangrene; E11.40 Type 2 diabetes mellitus with diabetic neuropathy, unspecified; G47.33 Obstructive sleep apnea (adult) (pediatric); E78.5 Hyperlipidemia, unspecified; I10 Essential (primary) hypertension; F39 Unspecified mood [affective] disorder; Z89.022 Acquired absence of left finger(s); Z89.432 Acquired absence of left foot; Z89.021 Acquired absence of right finger(s); Z79.4 Long term (current) use of insulin

== ENCOUNTER 2016-12-10 16:17 | Day surgery (SDC) | payer MEDICARE ==
[~2016-12-10] VITALS: Ht 179.1 cm; Wt 112.0 kg
[~2016-12-10 16:17] MED LIST: ASPI-973 PO; BUPR100T7 PO; CIPR-231 PO; CITA40TA13 PO; GABA600T2 PO; INSU100I18 SUBQ; INSU100I25 SQ; LACT1CAP44 PO; LIP40 PO; LOSA25TA21 PO; SENN-133 PO
[2016-12-10 16:30] VITALS: BP 133/69; PULSE 76; RESP 18; O2SAT 96
[2016-12-10] MEDS ORDERED: Dalbavancin Inj 1,500 MG in Dextrose 5% 500 ML IV ONE (16:35)
[2016-12-10] MEDS ORDERED: Dextrose 5% 100 ML ONE (17:04)
--- NOTE | 2016-12-10 18:33 | NUR ---
IV Infusion Patient came from Dr. Woodard office, ordered to have Dalbavancin IV Infusion. Tolerated infusion with no adverse reaction. Denies pain or any discomfort. VSS. Left the unit ambulatory with .
== END 2016-12-10 23:59 | disposition home or self-care (01) ==
LOC: MOCO 16:17
PROVIDERS: ATTEND Internal Medicine Infectious Disease
DX: M86.8X4 Other osteomyelitis, hand (principal); E11.69 Type 2 diabetes mellitus with other specified complication; E11.42 Type 2 diabetes mellitus with diabetic polyneuropathy; Z89.512 Acquired absence of left leg below knee; Z89.431 Acquired absence of right foot
CPT/HCPCS: 96365; J0875; J7060

== ENCOUNTER 2016-12-11 07:31 | Day surgery (SDC) | payer MEDICARE ==
[~2016-12-11] VITALS: Ht 180.3 cm; Wt 112.2 kg
[~2016-12-11 07:31] MED LIST changes: +CeFAZolin Inj 2 GM in IV Premix 1 EACH IV SCH; +Dalbavancin Inj 1,500 MG in Dextrose 5% 500 ML IV ONE
[2016-12-11] MEDS ORDERED: fentaNYL-PF 50 mCg/mL 2 mL Inj ONE (07:32)
[2016-12-11] MEDS ORDERED: Lidocaine PF 1% 30 mL Inj ONE (07:32)
[2016-12-11] MEDS: Lactated Ringer's 1,000 ML IV SCH ×2 (08:10→09:09)
[2016-12-11 08:12] VITALS: BP 154/72; PULSE 73; RESP 16; O2SAT 97
[2016-12-11] MEDS ORDERED: Insulin LISPRO 300 Unit/3 mL Inj SUBQ ONE (08:35)
--- NOTE | 2016-12-11 09:02 | PCM.HPANE ---
Patient Data Date of Service: December 11, 2016 Surgeon Admitting Provider: Attending Provider:Dayron Griffiths MD Primary Care Physician:[facility] Other Provider:Sundeep Raines Anesthesia Reason for Visit Left Middle Finger Ampuation Revision Ht/WT & BMI Height (Feet): 5 Height (Inches): 11 Weight (Kilograms): 111.58 Body Mass Index 34.00 Allergies Coded Allergies: No Known Allergies (Unverified , 11/25/16) Past Anesthesia History Anesthesia History: Denies:: Abnormal Airway, Anesthesia Reactions, Difficult Intubation Diabetes History Hx Diabetes?: Yes Type of Diabetes: Type II Glycemic Control: Insulin & Oral Medication MRSA MRSA: No Medications Active Scripts Lactobacillus Acidophilus (Acidophilus Lactobacillus)1 Each Capsule2 Capsule PO BID #120 CAPSULE Prov:LexusShirley L DO 11/27/16 Ciprofloxacin (Cipro)500 Mg [id number] Mg PO BID #56 TABLET Ref 0 Prov:AlbertsShirley jennings L DO 11/27/16 Reported Medications Losartan Potassium 25 Mg Dpygwv24 Mg PO HS 11/26/16 Atorvastatin (Lipitor)40 Mg Zmwdyd61 Mg PO HS 11/26/16 Bupropion ER (Wellbutrin SR)100 Mg Tablet.er200 Mg PO HS 11/26/16 Sennosides (Senna)8.6 Mg Tablet8.6 Mg PO HS 11/26/16 Aspirin 81 Mg Iqbidw90 Mg PO HS 11/26/16 Citalopram 40 Mg Ufkbro89 Mg PO HS 11/26/16 Gabapentin 600 Mg Tablet1,200 Mg PO HS 11/26/16 Insulin Detemir (Levemir Flextouch)100 Unit/1 Ml Insuln.gwe334 Unit SQ BID 11/26/16 Insulin Lispro (HumaLOG U100 Insulin Pen)100 Unit/1 Ml Insuln.pen50 Unit SUBQ TIDAC Blood Sugar Lispro Correction <151 0 units 151-175 1 unit 176-200 2 units 201-225 3 units 226-250 4 units 251-275 5 units 276-300 6 units 301-325 7 units 326-350 8 units 351-375 9 units 376-400 10 units >400 12 units Check blood sugars before meals and at bedtime. Use correction factor only before meals. 11/26/16 History History of ENT Problems?: No HEENT History: Denies:: Abnormal Airway Difficult Intubation Denture Type: None Teeth Condition: Within Normal Limits Hx of Heart Problems?: No Cardiovascular History: Positive for:: Hypertension Denies:: Congestive Heart Failure Hx of Respiratory Problem?: No Respiratory History: Positive for:: Asthma Hx Neurologic Problems?: No Hx of GI Problems?: No Hx of Problems?: No Genitourinary History: Denies:: Kidney Stones Urinary Tract Infection HX of Peritoneal Dialysis: No Male Hx: Denies:: Scrotal Mass Testicular Surgery Skin History: Denies:: History Skin Disorders? Pressure Ulcers Hx Musculoskeletal Problems?: Yes Hx of Psycho/Social Problems?: No Psycho Social History: Positive for:: Hx Depression Hx Surgeries?: Yes Hx Any Other Health Problems?: No Other History: Positive for:: Hospitalization (November 2016) Denies:: Cancer Thyroid Disease History Blood Transfusions: Denies:: Blood Transfusions Hx Diabetes: Yes Hx Alcohol Use: NoHx Substance Use: No Smoking Status: Unknown if Ever Smoker Stop/Bang S-Snoring: Do You Snore Loudly: Yes T-Tired: feel tired, fatigued: No O-Obsered: Observed not breath: No P-Blood Pressure: treated: Yes B- Body Mass Index > 35 kg/m2: No A- Age over 50: No N- Neck Large Circumference: No G- Gender Male: Yes SYLVIA Total Score: 3 Risk Assessment Category Category 1A: Patient has history of documented sleep apnea, and HAS NOT received any narcotic, sedative or anesthesia administration during this stay. Category 1B: Patient has history of documented sleep apnea, and HAS received any narcotic , sedative or anesthesia administration during this stay Category 2: Patient has SUSPECTED Obstructive Sleep Apnea, and HAS received any narcotic , sedative or anesthesia administration during this stay. Category 3: Patient has SUSPECTED Obstructive Sleep Apnea and HAS NOT received narcotic, sedative or anesthesia administration during this stay. Category 4: Outpatient in Procedural Areas with known sleep apnea or who screen positive for High Risk via the STOP/BANG questionnaire. Exam Exam Vital Signs Vital Signs Date Time Temp Pulse Resp B/P Pulse Ox O2 Delivery O2 Flow Rate FiO2 12/11/16 08:12 36.3 73 16 154/72 97 Room Air General Appearance: Alert, Oriented X3 HEENT/AIRWAY: MP 2 Lungs: Clear to Auscultation Heart: Exam Unremarkable Plan Impression Patient chart reviewed, patient interviewed and anesthestic plan with risks, benefits, and alternatives discussed, and informed consent obtained. NPO per Anesth. Guidelines: Yes ASA Physical Status: ASA3 Severe Disease Anesthetic Plan: MAC Bene/Risks/Altern/Consents: Yes HP Complete Prior to Induction: Yes Luís Lopez MD December 11, 2016 08:09
[2016-12-11] MEDS ORDERED: Lactated Ringer's 500 ML IV PRN (09:04)
[2016-12-11] MEDS ORDERED: Lactated Ringer's 1,000 ML IV SCH (09:04)
[2016-12-11] MEDS ORDERED: EPHEDrine Sulfate 50 mg/mL Inj IVPUSH PRN (09:05)
[2016-12-11] MEDS ORDERED: Phenylephrine 10,000 mCg/mL Inj IVPUSH PRN (09:05)
[2016-12-11] MEDS ORDERED: Ondansetron 2 mg/mL 2 mL Inj IVPUSH PRN (09:05)
[2016-12-11] MEDS ORDERED: fentaNYL-PF 50 mCg/mL 2 mL Inj IVPUSH PRN (09:05)
[2016-12-11] MEDS ORDERED: HYDROmorphone 1 mg/mL Inj IVPUSH PRN (09:05)
[2016-12-11] MEDS ORDERED: MetoCLOpramide 5 mg/mL 2 mL Inj IVPUSH PRN (09:05)
[2016-12-11] MEDS ORDERED: Bupivacaine-MPF 0.25% 30 mL Inj INFILTRATE ONE (09:12)
--- NOTE | 2016-12-11 10:04 | PCM.ANEP1 ---
Post Anesthesia PACU Phase 1 Assessment Date of Service: December 11, 2016 Vital Signs Vital Signs Date Time Temp Pulse Resp B/P Pulse Ox O2 Delivery O2 Flow Rate FiO2 12/11/16 08:12 36.3 73 16 154/72 97 Room Air post op 144/74, 72, 12, 100%, 36 Anesthetic Administered: MAC Level of Alertness: Awake, talking Pain: No Nausea or Vomiting: No CV Function & Hydration Stable: Yes Airway Device: Oxygen Delivery: Room Air Lungs: Clear to Auscultation PACU Phase 2 Assessment Complications: No Patient Instructions Provided: Yes Luís Lopez MD December 11, 2016 10:04
[2016-12-11 10:05] VITALS: BP 144/72; PULSE 72; RESP 10; O2SAT 97
[2016-12-11 11:00] VITALS: BP 125/75; PULSE 74; RESP 17; O2SAT 98
--- NOTE | 2016-12-12 22:59 | OP ---
[address] [address] OPERATIVE REPORT PATIENT: VENTURA MARIN : 1970 MR#: [id number] ADMIT: 12/11/2016 JOB ID: [id number] DATE OF SURGERY: 12/11/2016 PREOPERATIVE DIAGNOSIS(ES): 1. Left middle finger osteomyelitis with abscess. 2. 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 POSTOPERATIVE DIAGNOSIS(ES): 1. Left middle finger osteomyelitis with abscess. 2. 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 PROCEDURE: Formal revision amputation of the left middle finger. SURGEON: Dayron Griffiths MD. CONVENIENCE STORE MANAGER: None. ANESTHESIA: MAC with local. COMPLICATIONS: None apparent. SPECIMEN: None. INDICATIONS FOR PROCEDURE: This is a 46-year-old male patient with a history of osteomyelitis and peripheral vasculitis and diabetes. Patient was admitted to the hospital on November 26 with acute infection of the left middle finger with abscess of the distal phalanx. X-ray demonstrated osteomyelitis. At that point, I was consulted. A guillotine amputation was then carried out. A soft tissue amputation was carried out near the base of the nail fold. The bone was disarticulated at the DIP joint. Patient had been performing dressing changes. The infection appears to have settled some. At this point, formal revision amputation is indicated. PROCEDURE AND FINDINGS: The patient was identified in the preoperative area and surgical site was marked. The patient was then taken back to the operating room and placed supine on the operating table. Appropriate time-outs were taken. MAC was induced smoothly. The patient was then prepped and draped in the usual sterile manner. Local anesthesia was then infiltrated to the left middle finger around the neurovascular bundle and the dorsal ring block. At this point, the finger was examined. It was noted that the finger was viable with normal appearing soft tissue all the way to the tip. The finger was then exsanguinated and a small tourniquet placed at the base of the finger. At this point, I excised the distal 2 mm of the soft tissue off of the end of the finger. I then elevated the soft tissue off of the underlying middle phalanx. Once a sufficient amount of soft tissue had been elevated off of the middle phalanx, I amputated the middle phalanx at the neck. Rongeur was then used to smooth out the residual bone stump. At this point, a fishmouth incision was then designed. I elected to proceed with a fishmouth as there was not enough volar soft tissue to really perform a nice volar type of flap closure. Once the fishmouth was designed, incision was then made along the designed fishmouth incision all the way down to the underlying bone. Once this had been done, tourniquet was released. It was noted that there was brisk bleeding along the flap. The volar flap was then reapproximated to the dorsal flap at the center point with a 4-0 nylon vertical mattress suture. Once this had been done, excess flap was then trimmed, mostly off of the dorsal flap. The rest of the incision was then reapproximated with alternating 4-0 nylon vertical mattress sutures with 4-0 nylon simple interrupted sutures. The patient tolerated the procedure well. Needle count, sponge count, instrument counts were correct at the end of the procedure. The patient was transported to recovery in stable condition.
== END 2016-12-11 23:59 | disposition home or self-care (01) ==
LOC: SAS 07:31
PROVIDERS: ATTEND Plastic Surgery
DX: M86.8X2 Other osteomyelitis, upper arm (principal); L03.012 Cellulitis of left finger; S68.113D Complete traumatic metacarpophalangeal amputation of left middle finger, subsequent encounter; I10 Essential (primary) hypertension; E11.9 Type 2 diabetes mellitus without complications; J45.909 Unspecified asthma, uncomplicated; F32.9 Major depressive disorder, single episode, unspecified; Z79.84 Long term (current) use of oral hypoglycemic drugs; Z79.4 Long term (current) use of insulin; Z79.82 Long term (current) use of aspirin
CPT/HCPCS: 26951; J0690; J2250; J3010; J7120